=== PATIENT | female | born 1955 | race Hispanic/Latino ===

== ENCOUNTER 2018-05-10 16:06 | Emergency (ER) | payer MEDICAID, MEDICARE ==
[2018-05-10] MEDS ORDERED: Iohexol 240 (50 ml) PO STA (16:36)
[2018-05-10] MEDS ORDERED: Sodium Chloride 0.9% 1,000 ML IV STA (16:38)
--- NOTE | 2018-05-10 16:59 | ED PDOC ---
HPI: Abdomen Time Seen by Provider: 05/10/18 16:19 Chief Complaint (Nursing): Abdominal Pain Chief Complaint (Provider): Abdominal Pain History Per: Patient History/Exam Limitations: no limitations Onset/Duration Of Symptoms: Days Current Symptoms Are (Timing): Still Present Additional Complaint(s): 62 y/o female with a PMHx of pancreatic cancer and s/p whipple procedure two years ago presents to the ED for evaluation of abdominal pain, onset two months ago. Patient reports pain was initially intermittent and has been worsening for the last two months. Patient states pain began in the epigastric region but has radiated to the entire abdomen. Patient reports pain is associated with vomiting every day after eating and intermittent episodes of non-bloody diarrhea. Patient is currently following with [facility] for pancreatic cancer and is receiving pain management through [facility]. Patient additionally reports of running out of pain medications and is unable to see them until Friday. Patient has not followed up with them yet for this new abdominal pain. Denies urinary symptoms, fever and chills PMD: No Provider at this time. Currently changing PMDs. Past Medical History Reviewed: Historical Data, Nursing Documentation, Vital Signs Vital Signs: Last Vital Signs Temp 99.2 F 05/10/18 16:21 Pulse 81 05/10/18 16:21 Resp 18 05/10/18 16:21 BP 127/78 05/10/18 16:21 Pulse Ox 98 05/10/18 20:00 - Medical History PMH: Osteoporosis Other PMH: Pancreatic Cancer, neuropathy - Surgical History Other surgeries: Whipple - Family History Family History: States: Hypertension - Home Medications Home Medications: Ambulatory Orders Medication Instructions Recorded oxyCODONE [oxyCODONE Immediate 15 mg PO Q4 PRN #15 tab 05/10/18 Release Tab] - Allergies Allergies/Adverse Reactions: Allergies Allergy/AdvReac Type Severity Reaction Status Date / Time prednisone Allergy SWELLING Verified 05/10/18 16:21 Review of Systems ROS Statement: Except As Marked, All Systems Reviewed And Found Negative (as per HPI) Constitutional: Negative for: Fever, Chills Gastrointestinal: Positive for: Vomiting, Abdominal Pain, Diarrhea (Non-bloody) Genitourinary Female: Negative for: Dysuria, Frequency, Hematuria Physical Exam - Reviewed Nursing Documentation Reviewed: Yes Vital Signs Reviewed: Yes - Physical Exam Appears: Positive for: Non-toxic, In Acute Distress (mild, painful) Head Exam: Positive for: ATRAUMATIC, NORMOCEPHALIC Skin: Positive for: Warm, Dry Eye Exam: Positive for: EOMI, PERRL ENT: Positive for: Pharynx Is (clear), Other (Dry mucous membranes) Neck: Positive for: Painless ROM, Supple Cardiovascular/Chest: Positive for: Regular Rate, Rhythm. Negative for: Murmur Respiratory: Positive for: Normal Breath Sounds. Negative for: Wheezing Gastrointestinal/Abdominal: Positive for: Bowel Sounds (Hyperactive), Soft, Tenderness (diffuse), Distended (mild). Negative for: Mass, Guarding, Rebound Back: Positive for: Normal Inspection. Negative for: Decreased ROM Extremity: Positive for: Normal ROM. Negative for: Deformity Lymphatic: Negative for: Adenopathy Neurologic/Psych: Positive for: Alert, Mood/Affect (anxious affect). Negative for: Motor/Sensory Deficits - Laboratory Results Result Diagrams: 05/10/18 17:08 05/10/18 17:08 - ECG O2 Sat by Pulse Oximetry: 98 (RA) Pulse Ox Interpretation: Normal Medical Decision Making Medical Decision Making: Time: 163 Impression: abdominal pain Differentials include but not limited to acute on chronic pain, obstruction, re- occurrence of pancreatic cancer, colitis and gastritis Plan: -- CT Abd/Pelvis PO & IV Contrast -- CMP -- Urine Drug Screen -- Lact Acid, Plasma -- Lipase -- Magnesium -- Phosphorus -- ED Urine Dipstick -- CBC with differentials -- PTT -- Prothrombin Time -- Morphine 4 mg IVP -- Sodium Chloride IV 1000 mls/hr -- Iohexol 50 ml PO -- Toradol 15 mg IVP -- Zofran mg IVP -- IV Insertion Time: 1937 CT RESULTS FINDINGS: Lower thorax: No acute findings. ABDOMEN: Liver: Findings consistent with fatty infiltration of the liver are identified. Gallbladder and bile ducts: There has been a cholecystectomy. Pancreas: There has been a pancreatectomy. Spleen: Normal. No splenomegaly. Adrenals: Normal. No mass. Kidneys and ureters: Normal. No hydronephrosis. Stomach and bowel: There is stool throughout the colon. There has been a gastrojejunostomy. There is no bowel obstruction or wall thickening. Appendix: The appendix is visualized and appears normal. PELVIS: Bladder: Unremarkable as visualized. Reproductive: Unremarkable as visualized. ABDOMEN and PELVIS: Intraperitoneal space: Normal. No free air. No significant fluid collection. Bones/joints: Degenerative change is identified in the spine. There is no evidence for acute fracture or malalignment. Soft tissues: Unremarkable. Vasculature: Normal. No abdominal aortic aneurysm. Lymph nodes: Normal. No enlarged lymph nodes. IMPRESSION: There are no acute concerning abnormalities. Thank you for allowing us to participate in the care of your patient. Dictated and Authenticated by: Deedee García MD 05/10/2018 7:38 PM Eastern Time ([place] & [place]) No clinically significant lab abnormalities DW pt and boyfriend findings. JOSSIE Carter SALESPERSON FURNITURE for [facility]. Pt will be given oxycodone 15mg x 15 tablets and pt to followup Friday for further management. Scribe Attestation: Documented by Pedro Terrazas acting as a scribe for Ashlee Potter MD. Provider Scribe Attestation: All medical record entries made by the Scribe were at my direction and personally dictated by me. I have reviewed the chart and agree that the record accurately reflects my personal performance of the history, physical exam, medical decision making, and the department course for this patient. I have also personally directed, reviewed, and agree with the discharge instructions and disposition. Disposition - Clinical Impression Clinical Impression: Abdominal pain, Leg pain, Chronic pain Counseled Patient/Family Regarding: Studies Performed, Diagnosis, Need For Followup, Rx Given - Disposition Disposition: Routine/Home Disposition Time: 20:27 Condition: STABLE Additional Instructions: FOLLOW UP WITH DR HUSSEIN FRIDAY FOR FURTHER MANAGEMENT OF YOUR PAIN FOLLOWUP SOON POSSIBLE WITH A PRIMARY CARE PROVIDER FOR FURTHER EVALUATION OF YOUR STOMACH PAIN. YOU MAY NEED TO SEE A RETAIL ACCOUNT MANAGER AGAIN. Prescriptions: oxyCODONE [oxyCODONE Immediate Release Tab] 15 mg PO Q4 PRN #15 tab PRN Reason: Pain, Severe (8-10) Instructions: Chronic Pain (DC), Taking Narcotics Safely
[2018-05-10 17:15] LABS: BASO % 0.9 % (0.0-2.0); EOS # 0.1 K/uL (0.0-0.7); HEMOGLOBIN 9.8 g/dL (12.0-16.0); LYMPH # 1.7 K/uL (1.0-4.3); LYMPH % 33.8 % (20.0-40.0); MEAN CELL VOLUME 74.5 fl (81.0-99.0); MEAN CORPUSCULAR HEMOGLOBIN 23.2 pg (27.0-31.0); MEAN CORPUSCULAR HGB CONC 31.2 g/dL (33.0-37.0); MEAN PLATELET VOLUME 8.3 fl (7.2-11.7); MONO # 0.5 K/uL (0.0-0.8); NEUT # 2.7 K/uL (1.8-7.0); NEUT % 53.3 % (50.0-75.0); RBC 4.21 Mil/uL (3.80-5.20); RED CELL DISTRIBUTION WIDTH 17.7 % (11.5-14.5)
[2018-05-10 17:23] LABS: ALB/GLOB RATIO 1.1 (1.0-2.1); ALBUMIN 4.2 g/dL (3.5-5.0); ALT/SGPT 38 U/L (9-52); AST/SGOT 49 U/L (14-36); BLOOD UREA NITROGEN 17 mg/dl (7-17); CALCIUM 8.6 mg/dL (8.4-10.2); GFR NON-AFRICAN AMERICAN > 60; INR 1.1; PROTHROMBIN TIME 11.7 Seconds (9.8-13.1)
[2018-05-10 17:26] LABS: PARTIAL THROMBOPLASTIN TIME 33.5 Seconds (25.6-37.1)
[2018-05-10 17:33] LABS: LIPASE < 10 U/L (23-300)
[2018-05-10 18:04] LABS: BARBITURATES, UR NEGATIVE (NEGATIVE); BENZODIAZEPINES, UR POSITIVE (NEGATIVE); OPIATES, UR POSITIVE (NEGATIVE); PHENCYCLIDINE, UR NEGATIVE (NEGATIVE)
[2018-05-10] MEDS ORDERED: Sodium Chloride 0.9% 50 ML IV ONE (18:32)
[2018-05-10] MEDS ORDERED: Iohexol 300 100 ML IJ ONE (18:32)
[2018-05-10 20:49] VITALS: BP 128/75; PULSE 76; RESP 17; TEMP 98.8; O2SAT 97
--- NOTE | 2018-05-11 09:42 | RAD ---
Date of service: 05/10/2018 HISTORY: chest pain COMPARISON: 06/27/2016 TECHNIQUE: Chest PA and lateral FINDINGS: LUNGS: No active pulmonary disease. PLEURA: No significant pleural effusion identified. No pneumothorax apparent. CARDIOVASCULAR: Normal. OSSEOUS STRUCTURES: No interval change in chronic healed right upper rib fractures. Degenerative changes are seen in the spine. VISUALIZED UPPER ABDOMEN: Normal. OTHER FINDINGS: None. IMPRESSION: No active disease. No interval
--- NOTE | 2018-05-11 10:00 | CARD ---
APPROVED REPORT Date of service: 05/10/2018 EKG Measurement Heart [id number] <Conclusion> Normal sinus rhythm Normal ECG
--- NOTE | 2018-05-11 12:47 | CT ---
Date of service: 05/10/2018 PROCEDURE: CT Abdomen and Pelvis with contrast HISTORY: abd pain h/o whipple, pancreatic cancer COMPARISON: 2010 TECHNIQUE: Contrast dose: 90 milliliters Radiation dose: Total exam DLP = 264 mGy-cm. This CT exam was performed using one or more of the following dose reduction techniques: Automated exposure control, adjustment of the mA and/or kV according to patient size, and/or use of iterative reconstruction technique. FINDINGS: LOWER THORAX: Lungs are unremarkable. Visualized distal esophagus shows no evidence of wall thickening. LIVER: Liver is fatty infiltrated, without evidence of new focal mass or intrahepatic ductal dilatation. GALLBLADDER AND BILE DUCTS: Gallbladder is been previously removed. There is evidence of prior Whipple surgery with surgical clips in the shania hepatis and very celiac region. Common bile duct is not well appreciated related to the surgery although no dilatation is clearly seen. PANCREAS: Pancreatic surgery has been performed since the prior study. No appreciable pancreatic bed masses. Tiny scattered shotty pericecal E act, shania hepatis, and gastrohepatic ligament lymph nodes are seen. No enlarged lymph nodes are clearly noted. Vascular structures appear grossly patent in the shania hepatis region. SPLEEN: Unremarkable. ADRENALS: Unremarkable. No mass. KIDNEYS AND URETERS: Small amount of scarring is noted in the kidneys. Kidneys are otherwise normal in size without hydronephrosis. There may be some very mild renal pelvic dilatation and ureteral dilatation extending towards the bladder although no ureteral calculus is clearly seen. VASCULATURE: No aneurysm is seen. Vascular structures appear grossly patent. BOWEL: No bowel obstruction is seen. Moderate residual fecal material is seen throughout the colon without pericolonic inflammatory change. Rectosigmoid region is unremarkable. Small bowel is unremarkable. No bowel obstruction is seen. Moderate residual fecal material is seen throughout the colon suggesting constipation. No swirling of the mesenteric is seen. APPENDIX: Unremarkable. PERITONEUM: No free intraperitoneal air or ascites is seen. LYMPH NODES: No retroperitoneal adenopathy or pelvic adenopathy is seen. BLADDER: Unremarkable. REPRODUCTIVE: Unremarkable. BONES: No acute fracture. OTHER FINDINGS: None. IMPRESSION: Status post Whipple surgery. No appreciable recurrent malignancy. No appreciable acute inflammatory process in the abdomen or pelvis. Status post cholecystectomy as was seen on the prior study from 2010. No bile duct dilatation seen. No bowel obstruction. Nonspecific mild renal pelvic and ureteral fullness without ureteral calculus. This agrees with preliminary report.
== END 2018-05-10 20:48 | disposition home or self-care (01) ==
LOC: H.ER 16:06
DX: R10.13 Epigastric pain (principal); M79.606 Pain in leg, unspecified; G89.29 Other chronic pain; C25.9 Malignant neoplasm of pancreas, unspecified; Z85.07 Personal history of malignant neoplasm of pancreas; Z90.411 Acquired partial absence of pancreas
CPT/HCPCS: 71046; 74177; 80053; 83605; 83690; 83735; 84100; 85025; 85610; 85730; 93005; 96374; 96375; 99284; G0480; J1885; J2270; J2405; J7030; Q9966; Q9967

== ENCOUNTER 2018-09-02 13:59 | Emergency (ER) | payer MEDICARE ==
[2018-09-02] MEDS ORDERED: Sodium Chloride 0.9% 1,000 ML IV STA (15:10)
--- NOTE | 2018-09-02 15:17 | ED PDOC ---
HPI: CCC, URI, Sore Throat Time Seen by Provider: 09/02/18 14:55 Chief Complaint (Nursing): Shortness Of Breath Chief Complaint (Provider): Cough History Per: Patient History/Exam Limitations: no limitations Onset/Duration Of Symptoms: Days (4x), Worse Since Current Symptoms Are (Timing): Still Present Sick Contacts (Context): Family Member(s) (grandchildren) Associated Symptoms: Chills, Cough, Sputum, Nasal Congestion, Diarrhea. denies: Fever Additional Complaint(s): 62 year old woman with a history of neuropathy, osteoporosis and pancreatic cancer presents to the ED for an evaluation of cough onset for 4 days. Patient reports it is worsening since onset associated with productive green sputum, chills, nasal congestion and chest pain. Prior to arrival today, she had a nose bleed for a few minutes that resolved spontaneously. She states she also spit up a little bit of blood afterwards. She states she has chronic diarrhea and abdominal pain without any change in those symptoms. Patient is visiting the area to see her grandchildren who are sick and had strep pharyngitis. Otherwise patient denies fever, nausea, weakness, numbness, urinary symptoms or any other complaints. PMD: started primary care in [facility] Past Medical History Reviewed: Historical Data, Nursing Documentation, Vital Signs Vital Signs: Last Vital Signs Temp Pulse 68 09/02/18 15:08 Resp 18 09/02/18 15:08 BP 128/75 09/02/18 15:08 Pulse Ox 98 09/02/18 15:08 - Medical History PMH: Osteoporosis Other PMH: pancreatic cancer, neuropathy - Surgical History Other surgeries: s/p whipple procedure 2 years ago - Family History Family History: States: Hypertension - Social History Current smoker - smoking cessation education provided: No Alcohol: None Drugs: Denies - Home Medications Home Medications: Ambulatory Orders Medication Instructions Recorded RX: oxyCODONE [oxyCODONE Immediate 15 mg PO Q4 PRN #15 tab 05/10/18 Release Tab] RX: Albuterol HFA [Ventolin HFA 90 2 puff IH Q4H PRN #1 inh 09/02/18 mcg/actuation (8 g)] RX: Azithromycin [Zithromax] 250 mg PO DAILY #6 dose 09/02/18 RX: Promethazine DM [Phenergan DM 10 ml PO Q6 PRN #120 ml 09/02/18 Syrup] - Allergies Allergies/Adverse Reactions: Allergies Allergy/AdvReac Type Severity Reaction Status Date / Time prednisone Allergy SWELLING Verified 09/02/18 14:02 Review of Systems ROS Statement: Except As Marked, All Systems Reviewed And Found Negative (As per HPI, otherwise negative) Constitutional: Positive for: Chills. Negative for: Fever ENT: Positive for: Nose Discharge (blood for few minutes that resolved ), Nose Congestion Cardiovascular: Positive for: Chest Pain Respiratory: Positive for: Cough, Sputum (green) Gastrointestinal: Positive for: Abdominal Pain (chronic ), Diarrhea (chronic) Genitourinary Female: Negative for: Dysuria, Frequency, Incontinence Skin: Negative for: Rash Psych: Negative for: Suicidal ideation (homicidal ideation) Physical Exam - Reviewed Nursing Documentation Reviewed: Yes Vital Signs Reviewed: Yes - Physical Exam Appears: Positive for: In Acute Distress (mild painful ) Head Exam: Positive for: ATRAUMATIC, NORMOCEPHALIC Skin: Positive for: Warm, Dry Eye Exam: Positive for: EOMI, PERRL ENT: Positive for: Nasal Congestion (nasal turbinates are boggy with dry blood), Pharyngeal Erythema (Blood in posterior pharynx ), Other (hoarse voice, tacky mucous membranes) Neck: Positive for: Painless ROM, Supple Cardiovascular/Chest: Positive for: Regular Rate, Rhythm. Negative for: Murmur Respiratory: Positive for: Normal Breath Sounds, Rhonchi (Diffuse scattered ) Gastrointestinal/Abdominal: Positive for: Soft. Negative for: Tenderness Back: Positive for: Normal Inspection. Negative for: Muscle Spasm Extremity: Positive for: Normal ROM. Negative for: Deformity Lymphatic: Negative for: Adenopathy Neurologic/Psych: Positive for: Alert. Negative for: Motor/Sensory Deficits - Laboratory Results Result Diagrams: 09/02/18 15:16 09/02/18 15:16 - ECG O2 Sat by Pulse Oximetry: 98 (RA) Pulse Ox Interpretation: Normal Medical Decision Making Medical Decision Making: Time: 151 Initial Impression: cough with influenza-like illness and nose bleed Differential Diagnosis: pneumonia, bronchitis, anemia, coagulopathy Initial Plan: BBK Type and Screen CMP Lact Acid, Plasma CBC w/ Differential PTT Prothrombin Time Chest two views Normal Saline 1000 mls/hr Acetaminophen 975mg Blood culture IV insertion Influenza A B Rapid strep Reevaluation Mild anemia and leukopenia. No emergently significant abnormalities. Accession No. : [id number] Patient Name / ID : TAMIA NGO T / [id number] Exam Date : 09/02/2018 15:19:54 ( Approved ) Study Comment : Sex / Age : F / 62Y Creator : riky mckoy Dictator : Adia Manuel MD Kilnman : Flask Maker : Adia Manuel MD Approver2 : Report Date : 09/02/2018 15:41:31 My Comment : Date of service: 09/02/2018 HISTORY: Cough and chest pain COMPARISON: 05/10/2018. TECHNIQUE: Chest PA and lateral FINDINGS: LINES AND TUBES: None. LUNG AND PLEURA: The lungs are hyperinflated and there is peribronchial thickening with chronic changes in both lungs. No pleural effusion or pneumothorax. HEART AND MEDIASTINUM: The heart is not enlarged. No aortic atherosclerotic calcification present. The hilar and mediastinal contours are within normal limits. SKELETAL STRUCTURES: The bony structures are within normal limits for the patient's age. There are stable old fracture deformities in the right upper posterior ribs. VISUALIZED UPPER ABDOMEN: Normal. OTHER FINDINGS: None. IMPRESSION: No active pulmonary disease. COPD. 1630 On reeval pt with no recurrence of nosebleed. Improved breathing s/p nebulizer. DW pt and SO findings and plan of care. Discussed at length reasons to RTER and clinical impression and need for reeval by PMD within 2-3 days Scribe Attestation: Documented by Bette Espana, acting as a scribe for Ashlee Potter MD Provider Scribe Attestation: All medical record entries made by the Scribe were at my direction and personally dictated by me. I have reviewed the chart and agree that the record accurately reflects my personal performance of the history, physical exam, medical decision making, and the department course for this patient. I have also personally directed, reviewed, and agree with the discharge instructions and disposition. Disposition - Clinical Impression Clinical Impression: Bronchitis, Epistaxis, URI (upper respiratory infection) Counseled Patient/Family Regarding: Studies Performed, Diagnosis, Need For Followup, Rx Given - Disposition Disposition: Routine/Home Disposition Time: 16:36 Condition: STABLE Additional Instructions: FOLLOW UP SOON POSSIBLE WITH YOUR PRIMARY CARE CLINIC. TAKE MEDICATIONS PRESCRIBED RETURN TO ER FOR WORSENING SYMPTOMS Prescriptions: RX: Albuterol HFA [Ventolin HFA 90 mcg/actuation (8 g)] 2 puff IH Q4H PRN #1 inh PRN Reason: chest tightness RX: Azithromycin [Zithromax] 250 mg PO DAILY #6 dose RX: Promethazine DM [Phenergan DM Syrup] 10 ml PO Q6 PRN #120 ml PRN Reason: SEVERE COUGH ONLY Instructions: Acute Bronchitis, Adult (DC), Nosebleeds (DC)
[2018-09-02 15:31] LABS: BASO % 1.1 % (0.0-2.0); EOS # 0.1 K/uL (0.0-0.7); EOS % 2.4 % (0.0-4.0); HEMOGLOBIN 8.1 g/dL (12.0-16.0); LYMPH # 1.4 K/uL (1.0-4.3); LYMPH % 37.2 % (20.0-40.0); MEAN CELL VOLUME 75.7 fl (81.0-99.0); MEAN CORPUSCULAR HGB CONC 30.4 g/dL (33.0-37.0); MEAN PLATELET VOLUME 8.6 fl (7.2-11.7); MONO # 0.3 K/uL (0.0-0.8); MONO % 8.5 % (0.0-10.0); NEUT # 1.9 K/uL (1.8-7.0); NEUT % 50.8 % (50.0-75.0); NRBC % 0.2 % (0.0-0.0); RBC 3.53 Mil/uL (3.80-5.20); WHITE BLOOD COUNT 3.8 K/uL (4.8-10.8)
[2018-09-02 15:37] LABS: INR 1.2; PROTHROMBIN TIME 13.1 Seconds (9.8-13.1)
[2018-09-02 15:40] LABS: PARTIAL THROMBOPLASTIN TIME 29.7 Seconds (25.6-37.1)
--- NOTE | 2018-09-02 15:46 | RAD ---
Date of service: 09/02/2018 HISTORY: Cough and chest pain COMPARISON: 05/10/2018. TECHNIQUE: Chest PA and lateral FINDINGS: LINES AND TUBES: None. LUNG AND PLEURA: The lungs are hyperinflated and there is peribronchial thickening with chronic changes in both lungs. No pleural effusion or pneumothorax. HEART AND MEDIASTINUM: The heart is not enlarged. No aortic atherosclerotic calcification present. The hilar and mediastinal contours are within normal limits. SKELETAL STRUCTURES: The bony structures are within normal limits for the patient's age. There are stable old fracture deformities in the right upper posterior ribs. VISUALIZED UPPER ABDOMEN: Normal. OTHER FINDINGS: None. IMPRESSION: No active pulmonary disease. COPD.
[2018-09-02 15:47] LABS: ALBUMIN 3.4 g/dL (3.5-5.0); ALT/SGPT 29 U/L (9-52); AST/SGOT 33 U/L (14-36); BLOOD UREA NITROGEN 5 mg/dl (7-17); CALCIUM 7.8 mg/dL (8.4-10.2); GFR NON-AFRICAN AMERICAN > 60
[2018-09-02 15:59] LABS: B-TYPE NATRIURETIC PEPTIDE 738 pg/ml (0-900)
[2018-09-02] MEDS ORDERED: Albuterol-Ipratrop 3 mg / 0.5 (3 ml) UD INH STA (16:10)
[2018-09-02] MEDS ORDERED: Albuterol-Ipratrop 3 mg / 0.5 (3 ml) UD ONE ×2 (16:24→16:25)
[2018-09-02 17:25] VITALS: PULSE 66
[2018-09-02 18:03] VITALS: BP 132/78; RESP 20; TEMP 98.6; O2SAT 98
--- NOTE | 2018-09-03 23:45 | CARD ---
APPROVED REPORT Date of service: 09/02/2018 EKG Measurement Heart [id number] CT [id number] <Conclusion> Normal sinus rhythm Normal ECG
== END 2018-09-02 18:04 | disposition home or self-care (01) ==
LOC: H.ER 13:59
DX: J40 Bronchitis, not specified as acute or chronic (principal); R04.0 Epistaxis; J06.9 Acute upper respiratory infection, unspecified; J44.9 Chronic obstructive pulmonary disease, unspecified; Z85.07 Personal history of malignant neoplasm of pancreas; Z98.890 Other specified postprocedural states; Z79.899 Other long term (current) drug therapy; M81.0 Age-related osteoporosis without current pathological fracture
CPT/HCPCS: 71046; 80053; 83605; 83880; 84484; 85025; 85610; 85730; 86850; 86900; 87040; 87070; 87430; 87804; 93005; 96360; 99285; J7030